=== PATIENT | male | born 1980 | race Caucasian/White ===

== ENCOUNTER 2021-03-16 15:44 | Emergency (ER) | payer SELFPAY ==
[~2021-03-16] VITALS: Ht 157.5 cm; Wt 91.0 kg
[2021-03-16] MEDS ORDERED: CYCL5TAB MT (19:41)
[2021-03-16] MEDS ORDERED: IBUP-2029 MT (19:41)
[2021-03-16 20:00] VITALS: BP 129/83
== END 2021-03-16 20:07 | disposition home or self-care (01) ==
LOC: ER 15:44
DX: S16.1XXA Strain of muscle, fascia and tendon at neck level, initial encounter (principal); S39.012A Strain of muscle, fascia and tendon of lower back, initial encounter; V49.9XXA Car occupant (driver) (passenger) injured in unspecified traffic accident, initial encounter; Y93.89 Activity, other specified; Y92.89 Other specified places as the place of occurrence of the external cause; Y99.8 Other external cause status
CPT/HCPCS: 99282